=== PATIENT | female | born 1985 | race Caucasian/White ===

== ENCOUNTER 2020-05-17 21:26 | Emergency (ER) | payer OTHER ==
[2020-05-17 22:02] VITALS: BP 120/79; PULSE 77; TEMP 98.1; BMI 21.4
[2020-05-17] MEDS ORDERED: FAMOTIDINE 20 MG TABLET PO ONE (22:17)
[2020-05-17] MEDS ORDERED: MAG HYDROX/AL HYDROX/SIMETH 30 ML UNIT-DOSE CUP PO ONE (22:17)
[2020-05-17] MEDS ORDERED: MAG HYDROX/AL HYDROX/SIMETH 30 ML UNIT-DOSE CUP ONE (22:20)
[2020-05-17] MEDS ORDERED: FAMOTIDINE 20 MG TABLET ONE (22:21)
== END 2020-05-17 22:32 | disposition home or self-care (01) ==
LOC: FER 21:26
DX: R07.89 Other chest pain (principal); K21.9 Gastro-esophageal reflux disease without esophagitis
CPT/HCPCS: 71046-TC-FY; 93005; 99284-25